=== PATIENT | male | born 1960 | race Caucasian/White ===

== ENCOUNTER 2022-09-21 21:25 | Emergency (ER) | payer OTHER ==
[~2022-09-21] VITALS: Ht 177.8 cm; Wt 109.1 kg
[2022-09-21 22:34] VITALS: BP 168/91
[2022-09-21] MEDS ORDERED: LIDOcaine 5% patch TP STA (23:28)
[2022-09-21] MEDS ORDERED: ketorolac trometh inj. 60 MG/2 ML VIAL IM ONE (23:30)
== END 2022-09-22 01:13 | disposition home or self-care (01) ==
LOC: ER 21:26
DX: M79.605 Pain in left leg (principal); F17.200 Nicotine dependence, unspecified, uncomplicated; I10 Essential (primary) hypertension; E11.9 Type 2 diabetes mellitus without complications
CPT/HCPCS: 93971; 96372; 99284; J1885

== ENCOUNTER 2022-10-17 12:44 | Outpatient (CLI) | payer OTHER | END 2022-10-17 23:59 | disposition home or self-care (01) | LOC: RAD 12:44 | PROVIDERS: ATTEND Nurse Practitioner | DX: M47.816 Spondylosis without myelopathy or radiculopathy, lumbar region (principal); M48.07 Spinal stenosis, lumbosacral region; M51.27 Other intervertebral disc displacement, lumbosacral region; M12.88 Other specific arthropathies, not elsewhere classified, other specified site; M54.42 Lumbago with sciatica, left side | CPT/HCPCS: 72110; 72148 ==

== ENCOUNTER 2023-12-26 10:01 | Inpatient (IN) | payer MEDICARE, OTHER ==
[~2023-12-26] VITALS: Ht 177.8 cm; Wt 111.5 kg
[2023-12-26 11:08] LABS: BASOPHILS # (AUTO) 0.1 X10'3 (0-0.2); BASOPHILS % (AUTO) 0.8 % (0-1); EOSINOPHILS # (AUTO) 0.3 X10'3 (0-0.9); EOSINOPHILS % (AUTO) 3.1 % (0-6); HEMATOCRIT 46.1 % (42.0-52.0); HEMOGLOBIN 16.2 g/dl (14.0-17.9); LYMPHOCYTES # (AUTO) 2.1 X10'3 (1.1-4.8); LYMPHOCYTES % (AUTO) 20.5 % (21-51); MEAN CORPUSCULAR HEMOGLOBIN 33.1 PG (27.0-31.0); MEAN CORPUSCULAR HGB CONC 35.1 g/dL (33.0-36.5); MEAN CORPUSCULAR VOLUME 94.3 FL (78-98); MEAN PLATELET VOLUME 10.3 FL (7.4-10.4); MONOCYTES # (AUTO) 0.9 X10'3 (0-0.9); MONOCYTES % (AUTO) 8.8 % (2-12); NEUTROPHILS # (AUTO) 6.8 X10'3 (1.8-7.7); NEUTROPHILS % (AUTO) 66.8 % (42-75); PLATELET COUNT 222 X10'3 (140-440); RED BLOOD COUNT 4.89 X10'6 (4.70-6.10); RED CELL DISTRIBUTION WIDTH 13.7 % (11.5-14.5); WHITE BLOOD COUNT 10.2 X10'3 (4.5-11.0)
[2023-12-26 11:13] LABS: ALBUMIN 3.7 G/DL (3.4-5.0); ANION GAP 9 (8-16); BLOOD UREA NITROGEN 19 MG/DL (7-18); BUN/CREATININE RATIO 17.4 (10.0-20.0); CALCIUM 11.1 MG/DL (8.5-10.1); CHLORIDE 103 MMOL/L (99-107); CREATININE 1.09 MG/DL (0.60-1.10); GLUCOSE 131 MG/DL (70-104); POTASSIUM 4.1 MMOL/L (3.5-5.1); SODIUM 136 MMOL/L (135-145); TOTAL CARBON DIOXIDE 24.2 MMOL/L (24-32); eCRCL 71 ML/MIN; eGFR 68 ML/MIN
[2023-12-26] MEDS: CefTRIAXone/D5W-Rocephin 1gm 50 ML IV ONE (13:15)
[2023-12-26] MEDS ORDERED: iohexol 350MG/ML 100ml bottle IV ONE (13:36)
[2023-12-26] MEDS: normal saline 1000ml 1,000 ML IV SCH (13:40)
[2023-12-26] MEDS ORDERED: magnesium 4gm in 100ml NS 100 ML IV PRN (13:40)
[2023-12-26] MEDS ORDERED: magnesium Cl slow-release 64mg tablet PO PRN (13:40)
[2023-12-26] MEDS ORDERED: magnesium 2GM in 50ml NS 50 ML IV PRN (13:40)
[2023-12-26] MEDS ORDERED: ondansetron/PF 4mg/2ml inj IV PRN (13:40)
[2023-12-26] MEDS ORDERED: potassium Cl 40MEQ/1/2NS 520ml 520 ML IV PRN (13:40)
[2023-12-26] MEDS ORDERED: potassium Cl 20 mEq SR tablet PO PRN ×2 (13:40)
[2023-12-26] MEDS ORDERED: acetaminophen 325mg tablet PO PRN ×2 (13:40)
[2023-12-26] MEDS ORDERED: dextrose 50%-water 50ml dispensing syringe IV PRN ×2 (13:45)
[2023-12-26] MEDS ORDERED: glucagon, human recombinant 1mg kit SUBCUT PRN (13:45)
[2023-12-26] MEDS ORDERED: DEXTROSE 15 GM of carb/4 tabs (each vial/BOTTLE has 4 tablets) PO PRN ×2 (13:45)
[2023-12-26] MEDS: morphine 4 MG/ML inj SYRINge IV ONE (14:16)
[2023-12-26] MEDS: INSULIN LISPRO 100 UNIT/ML INSULN.PEN MULTI-DOSE SQ SCH ×2 (17:00→18:00)
[2023-12-26] MEDS: nicotine 14mg patch - 24hr TD SCH (18:17)
[2023-12-26] MEDS: aspirin 81mg, enteric-coated 1 TAB TABLET.DR PO SCH (18:37)
[2023-12-26] MEDS: clopidogrel 300mg tablet PO ONE (18:37)
[2023-12-26] MEDS ORDERED: METO25TA6 PO (19:13)
[2023-12-26] MEDS ORDERED: GABA800T11 PO (19:13)
[2023-12-26] MEDS ORDERED: ATOR-2 PO (19:13)
[2023-12-26] MEDS ORDERED: LOSA50TA64 PO (19:13)
[2023-12-26] MEDS ORDERED: METF-436 PO (19:16)
[2023-12-26] MEDS ORDERED: enoxaparin 40mg/0.4ml syringe SQ SCH (20:00)
[2023-12-26] MEDS: doxycycline inj 100 MG in normal saline 100ml IV soln 100 ML IV SCH (20:13)
[2023-12-26] MEDS: morphine 4 MG/ML inj SYRINge IV PRN (20:28)
[2023-12-26 21:29] LABS: HEMOGLOBIN A1C 5.9 % (4.5-6.2)
[2023-12-26 22:00] VITALS: BP 158/60; PULSE 57; RESP 18; TEMP 97.3; O2SAT 99
[2023-12-27] VITALS (9 sets, daily range): BP systolic 134–176; BP diastolic 71–88; PULSE 52–65; RESP 16–19; TEMP 96.9–97.9; O2SAT 95–99
[2023-12-27 05:52] LABS: BASOPHILS # (AUTO) 0.1 X10'3 (0-0.2); EOSINOPHILS # (AUTO) 0.4 X10'3 (0-0.9); HEMOGLOBIN 15.1 g/dl (14.0-17.9); LYMPHOCYTES # (AUTO) 2.2 X10'3 (1.1-4.8); MONOCYTES # (AUTO) 0.9 X10'3 (0-0.9); MONOCYTES % (AUTO) 9.9 % (2-12); RED CELL DISTRIBUTION WIDTH 13.6 % (11.5-14.5); WHITE BLOOD COUNT 9.1 X10'3 (4.5-11.0)
[2023-12-27 05:54] LABS: EOSINOPHILS % (AUTO) 4.3 % (0-6); HEMATOCRIT 43.7 % (42.0-52.0); LYMPHOCYTES % (AUTO) 24.6 % (21-51); MEAN CORPUSCULAR HGB CONC 34.6 g/dL (33.0-36.5); MEAN CORPUSCULAR VOLUME 95.4 FL (78-98); MEAN PLATELET VOLUME 10.3 FL (7.4-10.4); NEUTROPHILS # (AUTO) 5.5 X10'3 (1.8-7.7); NEUTROPHILS % (AUTO) 60.2 % (42-75); PLATELET COUNT 200 X10'3 (140-440); RED BLOOD COUNT 4.59 X10'6 (4.70-6.10)
[2023-12-27 05:58] LABS: ALANINE AMINOTRANSFERASE 42 U/L (12-78); ALBUMIN 3.2 G/DL (3.4-5.0); ALBUMIN/GLOBULIN RATIO 0.9 (1.1-1.5); ALKALINE PHOSPHATASE 64 IU/L (46-116); ANION GAP 9 (8-16); ASPARTATE AMINO TRANSFERASE 20 U/L (10-37); BILIRUBIN,TOTAL 0.2 MG/DL (0.1-1.0); BLOOD UREA NITROGEN 21 MG/DL (7-18); BUN/CREATININE RATIO 19.4 (10.0-20.0); CALCIUM 9.9 MG/DL (8.5-10.1); CHLORIDE 102 MMOL/L (99-107); CREATININE 1.08 MG/DL (0.60-1.10); GLUCOSE 88 MG/DL (70-104); POTASSIUM 4.2 MMOL/L (3.5-5.1); SODIUM 135 MMOL/L (135-145); TOTAL CARBON DIOXIDE 24.2 MMOL/L (24-32); TOTAL PROTEIN 6.8 G/DL (6.4-8.2); eCRCL 71 ML/MIN; eGFR 69 ML/MIN
[2023-12-27] MEDS: clopidogrel 75mg tablet PO SCH (07:53)
[2023-12-27] MEDS: pantoprazole 40mg Tablet.DR PO SCH (07:53)
[2023-12-27] MEDS ORDERED: clopidogrel 75mg tablet PO SCH (08:00)
[2023-12-27] MEDS: HYDROcodone/acetaminophen 5mg/325mg tablet PO PRN (08:02)
[2023-12-27] MEDS: losartan 25mg tablet PO ONE (14:37)
[2023-12-27] MEDS: CefTRIAXone 2gm/D5W 50ml BAG 50 ML IV SCH (14:55)
[2023-12-27] MEDS: VANCOmycin 2,000MG in NS 500ml IV soln IV ONE (15:38)
[2023-12-27] MEDS ORDERED: nicotine 14mg patch - 24hr TD SCH (17:35)
[2023-12-28] VITALS (8 sets, daily range): BP systolic 130–188; BP diastolic 84–116; PULSE 57–68; RESP 14–18; TEMP 96.9–98.1; O2SAT 95–98
[2023-12-28] MEDS: VANCOmycin 1250MG/NS 250ml Bag 250 ML IV SCH (03:44)
[2023-12-28 06:06] LABS: BASOPHILS # (AUTO) 0.1 X10'3 (0-0.2); BASOPHILS % (AUTO) 1.2 % (0-1); EOSINOPHILS # (AUTO) 0.4 X10'3 (0-0.9); HEMATOCRIT 46.7 % (42.0-52.0); HEMOGLOBIN 16.1 g/dl (14.0-17.9); LYMPHOCYTES # (AUTO) 2.3 X10'3 (1.1-4.8); LYMPHOCYTES % (AUTO) 25.8 % (21-51); MEAN CORPUSCULAR HEMOGLOBIN 33.2 PG (27.0-31.0); MEAN CORPUSCULAR HGB CONC 34.5 g/dL (33.0-36.5); MEAN CORPUSCULAR VOLUME 96.1 FL (78-98); MEAN PLATELET VOLUME 10.2 FL (7.4-10.4); MONOCYTES # (AUTO) 0.8 X10'3 (0-0.9); MONOCYTES % (AUTO) 9.1 % (2-12); NEUTROPHILS # (AUTO) 5.4 X10'3 (1.8-7.7); NEUTROPHILS % (AUTO) 59.9 % (42-75); PLATELET COUNT 201 X10'3 (140-440); RED BLOOD COUNT 4.86 X10'6 (4.70-6.10); RED CELL DISTRIBUTION WIDTH 13.7 % (11.5-14.5)
[2023-12-28 06:26] LABS: ALANINE AMINOTRANSFERASE 45 U/L (12-78); ALBUMIN 3.4 G/DL (3.4-5.0); ALBUMIN/GLOBULIN RATIO 0.9 (1.1-1.5); ALKALINE PHOSPHATASE 66 IU/L (46-116); ANION GAP 7 (8-16); ASPARTATE AMINO TRANSFERASE 22 U/L (10-37); BILIRUBIN,TOTAL 0.4 MG/DL (0.1-1.0); BLOOD UREA NITROGEN 20 MG/DL (7-18); BUN/CREATININE RATIO 19.2 (10.0-20.0); CALCIUM 10.2 MG/DL (8.5-10.1); CHLORIDE 102 MMOL/L (99-107); CREATININE 1.04 MG/DL (0.60-1.10); GLUCOSE 98 MG/DL (70-104); POTASSIUM 4.4 MMOL/L (3.5-5.1); SODIUM 134 MMOL/L (135-145); TOTAL CARBON DIOXIDE 24.6 MMOL/L (24-32); TOTAL PROTEIN 7.3 G/DL (6.4-8.2); eCRCL 74 ML/MIN; eGFR 72 ML/MIN
[2023-12-28] MEDS: gabapentin 400mg capsule PO SCH (19:00)
[2023-12-28] MEDS: atorvastatin 20mg tablet PO SCH (21:19)
[2023-12-29] MEDS: VANCOMYCIN LEVEL IV ONE (03:25)
[2023-12-29 03:35] LABS: BASOPHILS # (AUTO) 0.1 X10'3 (0-0.2); BASOPHILS % (AUTO) 0.8 % (0-1); EOSINOPHILS # (AUTO) 0.3 X10'3 (0-0.9); EOSINOPHILS % (AUTO) 3.1 % (0-6); HEMATOCRIT 44.4 % (42.0-52.0); HEMOGLOBIN 15.6 g/dl (14.0-17.9); LYMPHOCYTES % (AUTO) 21.7 % (21-51); MEAN CORPUSCULAR HEMOGLOBIN 33.1 PG (27.0-31.0); MEAN CORPUSCULAR HGB CONC 35.1 g/dL (33.0-36.5); MEAN CORPUSCULAR VOLUME 94.2 FL (78-98); MONOCYTES # (AUTO) 0.8 X10'3 (0-0.9); MONOCYTES % (AUTO) 8.5 % (2-12); NEUTROPHILS # (AUTO) 6.1 X10'3 (1.8-7.7); NEUTROPHILS % (AUTO) 65.9 % (42-75); PLATELET COUNT 194 X10'3 (140-440); RED BLOOD COUNT 4.71 X10'6 (4.70-6.10); RED CELL DISTRIBUTION WIDTH 13.6 % (11.5-14.5); WHITE BLOOD COUNT 9.2 X10'3 (4.5-11.0)
[2023-12-29 03:51] LABS: ALANINE AMINOTRANSFERASE 47 U/L (12-78); ALBUMIN 3.4 G/DL (3.4-5.0); ALBUMIN/GLOBULIN RATIO 0.9 (1.1-1.5); ALKALINE PHOSPHATASE 66 IU/L (46-116); ANION GAP 8 (8-16); ASPARTATE AMINO TRANSFERASE 22 U/L (10-37); BILIRUBIN,TOTAL 0.4 MG/DL (0.1-1.0); BLOOD UREA NITROGEN 23 MG/DL (7-18); BUN/CREATININE RATIO 20.9 (10.0-20.0); CHLORIDE 102 MMOL/L (99-107); GLUCOSE 95 MG/DL (70-104); POTASSIUM 4.1 MMOL/L (3.5-5.1); SODIUM 135 MMOL/L (135-145); TOTAL CARBON DIOXIDE 24.6 MMOL/L (24-32); TOTAL PROTEIN 7.2 G/DL (6.4-8.2); VANCOMYCIN,TROUGH 20.3 ug/mL (10.0-20.0); eCRCL 70 ML/MIN; eGFR 67 ML/MIN
[2023-12-29] MEDS ORDERED: vancomycin/NS 1 GM ADD-VANTAGE 250 ML IV SCH (04:29)
[2023-12-29 06:55] VITALS: BP 166/85; PULSE 62; RESP 16; TEMP 98.2; O2SAT 97
[2023-12-29 07:01] VITALS: BP 141/83
[2023-12-29 07:35] VITALS: RESP 16; O2SAT 98
[2023-12-29] MEDS: metoprolol tartrate 25mg tablet PO SCH (07:37)
[2023-12-29] MEDS: losartan 50mg tablet PO SCH (07:38)
[2023-12-29 10:00] VITALS: BP 137/71; PULSE 58; RESP 18; TEMP 98.1; O2SAT 97
[2023-12-29] MEDS ORDERED: GADOTERATE MEGLUMINE 7.5 MMOL/15 ML VIAL IV ONE (11:31)
[2023-12-29 16:39] VITALS: RESP 16
[2023-12-29] MEDS ORDERED: NICO-631 TD (17:19)
[2023-12-29] MEDS ORDERED: METF-436 PO (17:19)
[2023-12-29] MEDS ORDERED: DOXY-243 PO (17:19)
== END 2023-12-29 17:40 | disposition home or self-care (01) | DRG 638 ==
LOC: ER 10:02 → ED HOLD 13:41 → ORTHO 4S 19:23
PROVIDERS: ADMIT Internal Medicine; ATTEND Internal Medicine
PROC: B3251ZZ Computerized Tomography (CT Scan) of Bilateral Common Carotid Arteries using Low Osmolar Contrast (ICD-10-PCS; principal; 2023-12-26)
PROC: B32G1ZZ Computerized Tomography (CT Scan) of Bilateral Vertebral Arteries using Low Osmolar Contrast (ICD-10-PCS; 2023-12-26)
PROC: B3281ZZ Computerized Tomography (CT Scan) of Bilateral Internal Carotid Arteries using Low Osmolar Contrast (ICD-10-PCS; 2023-12-26)
DX: E11.69 Type 2 diabetes mellitus with other specified complication (principal); M86.8X7 Other osteomyelitis, ankle and foot; E11.621 Type 2 diabetes mellitus with foot ulcer; L97.519 Non-pressure chronic ulcer of other part of right foot with unspecified severity; E11.42 Type 2 diabetes mellitus with diabetic polyneuropathy; E11.65 Type 2 diabetes mellitus with hyperglycemia; E78.5 Hyperlipidemia, unspecified; M21.969 Unspecified acquired deformity of unspecified lower leg; F17.210 Nicotine dependence, cigarettes, uncomplicated; I10 Essential (primary) hypertension; Z79.84 Long term (current) use of oral hypoglycemic drugs; Z79.899 Other long term (current) drug therapy
CPT/HCPCS: 36415; 70450; 70496; 70498; 70551; 71045; 73630; 73718; 73719; 80048; 80053; 80202; 82948; 83036; 83605; 84145; 85025; 85651; 87040; 87081; 93306; 96365; 97161; 97530; 99285; A6258; A6446; A6449; A9575; G0378; J0696; J1815; J2270; J3370; J3490; J7030; J7040; Q9967

== ENCOUNTER 2025-07-06 10:59 | Emergency (ER) | payer MEDICARE, BC ==
[~2025-07-06] VITALS: Ht 177.8 cm; Wt 107.5 kg
[~2025-07-06 10:59] MED LIST: ATOR-2 PO; GABA-1555 PO; LOSA50TA64 PO; METF-436 PO; METO25TA6 PO; NICO-631 TD
[2025-07-06 11:21] VITALS: BP 156/84; PULSE 62; TEMP 98.3; O2SAT 100
[2025-07-06 11:38] LABS: MEAN PLATELET VOLUME 9.6 FL (7.4-10.4); RED CELL DISTRIBUTION WIDTH 13.6 % (11.5-14.5)
[2025-07-06 11:47] LABS: LEUKOCYTE ESTERASE ,URINE NEGATIVE (Neg); NITRITES, URINE NEGATIVE (Neg); OCCULT BLOOD,URINE NEGATIVE (Neg)
--- NOTE | 2025-07-06 11:48 | RADIOLOGY REPORT ---
EXAM: DI KNEE, COMP 4 VW MIN HISTORY: KNEE PAIN COMPARISON: None TECHNIQUE: 3 views of the right knee were performed. FINDINGS: No acute fracture is identified about the right knee. There are tricompartmental marginal osteophytes. There is mild joint space narrowing of the medial compartment. There is chondrocalcinosis of the medial and lateral menisci. There are enthesophytes on the superior and inferior poles of the patella. Probable large joint effusion. IMPRESSION: 1. No acute fracture of the right knee. 2. Tricompartmental degenerative changes of the right knee, greatest in the medial compartment. 3. Chondrocalcinosis of the medial and lateral menisci. 4. Probable large right knee effusion which may indicate internal derangement. Consider follow-up noncontrast MRI of the right knee for evaluation of the ligaments and menisci.
[2025-07-06 11:55] LABS: UA COLLECTION TYPE CLN CATCH MIDSTREAM
[2025-07-06 11:56] LABS: CREATININE 1.06 MG/DL (0.60-1.10); TOTAL CARBON DIOXIDE 26.0 MMOL/L (24-32); eCRCL 71 ML/MIN; eGFR 70 ML/MIN
[2025-07-06 12:02] LABS: SQUAMOUS EPITHELIAL CELL,UR NONE SEEN /LPF (FEW)
--- NOTE | 2025-07-06 12:25 | Physician Documentation ---
History of Present Illness ~ Chief Complaint: Knee Pain Stated Complaint: R KNEE PAIN Time Seen by MD: 11:41 Mode of Arrival: Wheelchair HPI 65 year old male with history of diabetes sent from clinic for acutely swollen R knee x 10 days. No fever, no redness, and no particular injury. He has a history of gout to that knee, but received a medrol dose pack during the course of this knee swelling which did not help. No IVDU in the past. Is ambulatory but with difficulty. Tetanus witin 5 years: Yes Medication Reconciliation Allergies: Coded Allergies: No Known Allergies (Unverified , 09/21/22) Scheduled Atorvastatin Calcium (Atorvastatin Calcium), 1 TAB PO HS, (Reported) Gabapentin (Gabapentin), 1 TAB PO TID, (Reported) Losartan Potassium (Losartan Potassium), 1 TAB PO DAILY, (Reported) Metformin Hcl (Metformin Hcl), 1 TAB PO DAILY Metoprolol Tartrate (Metoprolol Tartrate), 1 TAB PO DAILY, (Reported) Nicotine 14 MG Patch* (Habitrol 14 MG Patch*), 1 PATCH TD DAILY Past Medical History Past Medical History: Hypertension, Diabetes Past Surgical History: other Alcohol Use: Occasionally Drug Use: none Lives with: Spouse Lives In: Home Review of Systems All Other Systems at this time: Reviewed and Negative Physical Exam Vital Signs: RN Vital Signs have been reviewed: Yes, Temperature: 98.3, Heart Rate: 62, Respiratory Rate: 18, BP: 156/84, Pulse Oximetry: 100, Weight: 107.500 Oxygen Flow Rate: 0 Physical Exam General-patient not in any acute distress, alert awake oriented, chronically ill-appearing, age-appropriate, looks comfortable HEENT-atraumatic normocephalic, neck supple without elevated JVD, no thyromegaly or carotid bruit. No lymphadenopathy bilaterally. Chest-deferred Abdomen: deferred Skin no active skin rash Neurology-nonfocal Extremity- R knee with considerable effusion. Diffusely tender, no warmth, some range of motion, no erythema. Psychiatry - patient is not confused or agitated cooperated during physical examination Progress Results/Orders Results/Orders Orders - VANESSA SEGAL MD Knee, Complete (07/06/25 11:07) Hydrocodone/Apap 5/325mg Tab (Cammal 5/32 (07/06/25 12:20) Completed Orders - VANESSA SEGAL MD Knee, Complete (07/06/25 11:07) Cbc/Diff (07/06/25 11:12) CMP (07/06/25 11:12) Lacticsepsis (07/06/25 11:12) Ua W/Microscopic, Cult If Ind (07/06/25 11:35) Vital Signs 07/06/25 07/06/25 07/06/25 11:04 11:21 11:21 Temp 97.2 98.3 Pulse 63 62 Resp 17 18 B/P (MAP) 163/88 156/84 (108) Pulse Ox 98 100 O2 Flow Rate 0 0 Laboratory Tests Test 07/06/25 11:26 07/06/25 11:35 White Blood Count 9.8 Red Blood Count 4.97 Hemoglobin 16.5 Hematocrit 46.9 Mean Corpuscular Volume 94.4 Mean Corpuscular Hemoglobin 33.1 H Mean Corpuscular Hemoglobin Concent 35.1 Red Cell Distribution Width 13.6 Platelet Count 287 Mean Platelet Volume 9.6 Neutrophils (%) (Auto) 68.3 Lymphocytes (%) (Auto) 18.6 L Monocytes (%) (Auto) 9.3 Eosinophils (%) (Auto) 2.5 Basophils (%) (Auto) 1.3 H Neutrophils # (Auto) 6.7 Lymphocytes # (Auto) 1.8 Monocytes # (Auto) 0.9 Eosinophils # (Auto) 0.2 Basophils # (Auto) 0.1 CBC Comment Sodium Level 137 Potassium Level 4.5 Chloride Level 104 Carbon Dioxide Level 26.0 Anion Gap 7 L Blood Urea Nitrogen 33 H Creatinine 1.06 Estimated GFR/1.73 m2 70 BUN/Creatinine Ratio 31.1 H Glucose Level 94 Lactic Acid Level 1.0 Calcium Level 10.1 Total Bilirubin 0.4 Aspartate Amino Transf (AST/SGOT) 28 Alanine Aminotransferase (ALT/SGPT) 61 Alkaline Phosphatase 89 Total Protein 8.4 H Albumin 3.8 Globulin 4.6 H Albumin/Globulin Ratio 0.8 L Chemistry Comments Urine Specimen Description Cln catch midstream Urine Color Yellow Urine Clarity Clear Urine pH 6.0 Urine Specific Jackson 1.025 Urine Protein 30 H Urine Glucose (UA) Negative Urine Ketones Negative Urine Occult Blood Negative Urine Nitrite Negative Urine Bilirubin Negative Urine Urobilinogen 0.2 Urine Leukocyte Esterase Negative Urine RBC 0-2 Urine WBC 0-4 Urine Squamous Epithelial Cells None seen Urine Bacteria None seen Urine Culture Indicated Not ind Volume Urine Centrifuged 10 ml Urine Comment Medical Decision Making Additional information obtaine: N/A Findings 65 year old male with R knee pain and swelling. Given timeline, exam, normal WBC, and history, I feel that the likelihood of septic arthritis is low and that this represents a chronic knee effusion. The patient also reports prior arthroscopic surgery on this knee. R knee xray demonstrates no fracture, dislocation, normal contours. Pain medication, recommended follow up PCP for o utpatient MRI, return for increasing pain/fever/redness General Diff Dx:Considerations: Include: Other Knee Diff Dx:Considerations: Include: Other Ankle Diff Dx:Considerations: Include: Other Foot Diff Dx:Considerations: Include: Other Toe Diff Dx:Considerations: Include: Other Departure Disposition: 01 HOME / SELF CARE / HOMELESS Impression: Primary Impression: Effusion of knee Condition: Stable Discharge Instructions: Knee Effusion Referrals: NO PRIMARY CARE PROVIDER (PCP) Education Educated: Patient Educated regarding: diagnosis, treatment, prognosis, need for follow up Signature Scribe Signature: . Attestation: . VANESSA SEGAL MD Jul 06, 2025 12:25
[2025-07-06] MEDS ORDERED: HYDR-3965 PO (12:28)
[2025-07-06 12:46] VITALS: RESP 18
[2025-07-06] MEDS: HYDROcodone/acetaminophen 5mg/325mg tablet PO ONE (12:46)
== END 2025-07-06 12:55 | disposition home or self-care (01) ==
LOC: ER 10:59
DX: M25.461 Effusion, right knee (principal); E11.9 Type 2 diabetes mellitus without complications; I10 Essential (primary) hypertension; Z79.899 Other long term (current) drug therapy; Z72.89 Other problems related to lifestyle
CPT/HCPCS: 36415; 73564; 80053; 81001; 83605; 85025; 99284